=== PATIENT | male | born 1980 | race Caucasian/White ===

== ENCOUNTER 2021-07-15 21:41 | Emergency (ER) | payer MEDICAID, OTHER ==
[~2021-07-15] VITALS: Ht 188 cm; Wt 95.4 kg
--- NOTE | 2021-07-15 22:02 | NUR ---
primary RN maribell aware of patient
--- NOTE | 2021-07-15 22:15 | NUR ---
II # 20 G inserted in right AC, patent and intact; pt daniel procedure well; pt medicated per mar
[2021-07-15 22:19] LABS: ALANINE AMINOTRANSFERASE 35 U/L (12-78); ALBUMIN 4.3 G/DL (3.4-5.0); ALBUMIN/GLOBULIN RATIO 0.9 (1.1-1.5); ALKALINE PHOSPHATASE 44 IU/L (46-116); ANION GAP 15 (8-16); ASPARTATE AMINO TRANSFERASE 17 U/L (10-37); BILIRUBIN,TOTAL 1.8 MG/DL (0.1-1.0); BLOOD UREA NITROGEN 11 MG/DL (7-18); BUN/CREATININE RATIO 10.2 (5.4-32.0); CHLORIDE 100 MMOL/L (99-107); CREATININE 1.08 MG/DL (0.60-1.10); GLUCOSE 142 MG/DL (70-104); POTASSIUM 3.9 MMOL/L (3.5-5.1); SODIUM 138 MMOL/L (135-145); TOTAL CARBON DIOXIDE 22.6 MMOL/L (24-32); TOTAL PROTEIN 9.3 G/DL (6.4-8.2); eGFR 76 ML/MIN
[2021-07-15 22:27] LABS: BASOPHILS % (AUTO) 0.1 % (0-1); EOSINOPHILS % (AUTO) 0 % (0-6); HEMATOCRIT 46.5 % (42.0-52.0); HEMOGLOBIN 16.1 g/dl (14.0-17.9); LYMPHOCYTES # (AUTO) 0.8 X10'3 (1.1-4.8); LYMPHOCYTES % (AUTO) 5.3 % (21-51); MEAN CORPUSCULAR HEMOGLOBIN 31.3 PG (27.0-31.0); MEAN CORPUSCULAR HGB CONC 34.7 g/dL (33.0-36.5); MEAN CORPUSCULAR VOLUME 90.2 FL (78-98); MEAN PLATELET VOLUME 10.2 FL (7.4-10.4); MONOCYTES # (AUTO) 0.5 X10'3 (0-0.9); MONOCYTES % (AUTO) 3.3 % (2-12); NEUTROPHILS # (AUTO) 13.5 X10'3 (1.8-7.7); NEUTROPHILS % (AUTO) 91.3 % (42-75); PLATELET COUNT 310 X10'3 (140-440); RED BLOOD COUNT 5.15 X10'6 (4.70-6.10); RED CELL DISTRIBUTION WIDTH 13.2 % (11.5-14.5); WHITE BLOOD COUNT 14.8 X10'3 (4.5-11.0)
[2021-07-15 22:30] LABS: LIPASE 77 U/L (73-393)
--- NOTE | 2021-07-15 22:30 | NUR ---
Pt presents to the ed tx area with c/o abd pain on intensity of 4/10 for the past several hours; he describes the pain as aching sensation and is not certain of any factors that might have triggered his symptoms; the pt is a/o, in obvious discomfort; he denies fever/chills, h/as, sob, cp, nausea, and vomiting, or gu symptoms; the pt is gowned, on monitor, labs collected and sent by float RNs, will marquisem.
[2021-07-15] MEDS ORDERED: diphenhydrAMINE 50 mg/ml inj IM ONE (22:45)
[2021-07-15] MEDS ORDERED: proCHLORperazine 10 MG/2 ml inj IM ONE (22:45)
[2021-07-15] MEDS ORDERED: normal saline 1000ml 1,000 ML IV ONE (22:55)
[2021-07-15] MEDS ORDERED: ONDA4TAB12 PO (23:55)
[2021-07-16] MEDS ORDERED: ondansetron 4mg rapidly disintigrating tab PO ONE (00:20)
[2021-07-16 00:25] VITALS: BP 99/60
== END 2021-07-16 00:34 | disposition home or self-care (01) ==
LOC: ER 21:42
DX: A08.4 Viral intestinal infection, unspecified (principal); R11.2 Nausea with vomiting, unspecified; Z79.899 Other long term (current) drug therapy
CPT/HCPCS: 36415; 71045; 76700; 80053; 83690; 83880; 84484; 85025; 93005; 96360; 96372; 99285; J0780; J1200; J7030